=== PATIENT | female | born 1995 | race Hispanic/Latino ===

== ENCOUNTER 2023-09-29 20:18 | Emergency (ER) | payer BC, SELFPAY ==
[2023-09-29 20:21] VITALS: BP 147/85
[2023-09-29 20:40] LABS: % Basophils 0.5 % (0-2); % Eosinophils 1.6 % (0-6); % Immature Granulocytes 0.1 % (0-0.5); % Lymphocytes 31.1 % (20.5-51.1); % Monocytes 8.5 % (1.7-9.3); % Neutrophils 58.2 % (42.2-75.2); Absolute Eosinophils 0.1 10^3/uL (0-0.7); Absolute Lymphocytes 2.5 10^3/uL (1.2-3.4); Absolute Monocytes 0.7 10^3/uL (0.1-0.6); Absolute Neutrophils 4.6 10^3/uL (1.4-6.5); Hematocrit 38.4 % (37.0-47.0); Hemoglobin 13.2 g/dL (12.0-16.0); Mean Corp Hgb Conc. 34.4 g/dL (33.0-37.0); Mean Corpuscular Hgb 33.2 pg (27.0-31.0); Mean Corpuscular Volume 96.5 fL (81.0-99.0); Mean Platelet Volume 10.2 fL (7.4-10.4); Nucleated Red Blood Cells % 0 %; Platelet Count 225 10^3/uL (130-400); Red Blood Cell Count 3.98 10^6/uL (4.20-5.40); Red Cell Dist. Width 11.6 % (11.5-14.5)
[2023-09-29 20:54] LABS: HCG, Serum Qualitative Screen Negative
[2023-09-29 20:55] LABS: Urine Albumin Negative (Neg - Trace); Urine Bilirubin Negative (Negative); Urine Character Clear (Clear); Urine Color Yellow; Urine Glucose Negative (Negative); Urine Ketone Negative (Negative); Urine Leukocyte Negative (Negative); Urine Nitrite Negative (Negative); Urine Occult Blood Negative (Negative); Urine Urobilinogen Negative (Neg - 1+)
[2023-09-29 21:00] LABS: ALT (SGPT) 13 U/L (0-35); AST (SGOT) 25 U/L (14-36); Albumin 4.6 g/dl (3.5-5.0); Alkaline Phosphatase 47 U/L (38-126); Blood Urea Nitrogen 9 mg/dl (7-17); Calcium 9.7 mg/dl (8.4-10.2); Carbon Dioxide 26 mmol/L (22-30); Chloride 103 mmol/L (98-107); Glucose 85 mg/dl (70-99); Sodium 136 mmol/L (135-145); Total Bilirubin 0.5 mg/dl (0.2-1.3); Total Protein 7.6 g/dl (6.3-8.2); eGFR > 60.00
[2023-09-29 21:01] LABS: Lipase 53 U/L (23-300)
--- NOTE | 2023-09-29 21:44 | ED.GENMED ---
History of Present Illness
General
Chief Complaint: Abdominal Pain
Source: patient
Exam Limitations: none
Time Seen by Provider: 09/29/23 21:04
Nursing documentation reviewed up to this point in time: agreed with
History of Present Illness
History of Present Illness:
Patient is a 27-year-old female who presents to the ER complaining right upper quadrant pain. She reports she has had this for the past 2 and half weeks. She did get a full workup in the ER at [place] last Friday including CAT scan and
ultrasound. Pain has been consistent since however today around 6 PM after eating pain intensified. She feels pain in the right upper quadrant radiates to her back she was nauseous. She thought her stool was little darker then normal but still
brown in color. Denies black stools bloody stools.
Patient denies any history of reflux denies any burning sensation in abdomen or chest.
Review of Systems
Review of Systems
Allergies reviewed?: Yes
All Other Systems: ROS reviewed and negative except as documented in HPI and ROS
Constitutional: Reports no symptoms; Denies fever, fatigue or chills
Respiratory: Reports no symptoms
Cardiac: Reports no symptoms
ABD/GI: Reports abdominal pain and nausea; Denies vomiting, diarrhea or constipated
: Reports no symptoms
Musculoskeletal: Reports no symptoms
Skin: Reports no symptoms
Psychiatric: Reports no symptoms
Phy Exam
General Physical Exam
General Presentation: no apparent distress
General Skin: warm and dry
General Habitus: normal
General Mental: alert
General Hydration: appears well hydrated
Gastrointestinal Exam
Gastrointestinal Exam: soft and other (tender RUQ )
Neurological Exam
Neurological Exam: alert and oriented x3
Musculoskeletal Exam
Musculoskeletal Exam: full ROM
Skin Exam
Skin Exam: normal color and warm/dry
Psychiatric Exam
Psychiatric Exam: normal mood/affect
Course
Orders/Labs/Results
Orders:
Orders
09/29/23 20:26
Test Result ONCE
09/29/23 20:33
CBC/With Diff [Complete Blood Count/With Diff] Urgent
CMP [Comprehensive Metabolic Panel] Urgent
HCG, Serum Qualitative Screen Urgent
Lipase Urgent
Urinalysis Reflex To Culture Urgent
Date Specimen was Collected: 09/29/23
Time Specimen was Collected: 20:27
09/29/23 21:45
0.9% Sodium Chloride 1000 ml [Nss] 1,000 ml IV BOLUS
Ketorolac [Toradol] 15 mg IV NOW STA
US Abdomen Complete/Upper Urgent
Comment:
Reason For Exam: ruq pain radiating to back
09/30/23 00:24
Vital Signs- Treatment ONCE
Frequency: Once
Abnormal Lab Results
09/29/23
20:33
RBC 3.98 L 10^6/uL
(4.20-5.40)
MCH 33.2 H pg
(27.0-31.0)
Absolute Monos (auto) 0.7 H 10^3/uL
(0.1-0.6)
09/29/23 20:33
09/29/23 20:33
Vital Signs
Initial and Last Documented VS:
Initial Vital Signs
Temp Pulse Resp BP Pulse Ox
99.7 F 100 24 147/85 98
09/29/23 20:21 09/29/23 20:21 09/29/23 20:21 09/29/23 20:21 09/29/23 20:21
Last Documented Vital Signs
Temp Pulse Resp BP Pulse Ox
99.7 F 100 24 147/85 98
09/29/23 20:21 09/29/23 20:21 09/29/23 20:21 09/29/23 20:21 09/29/23 20:21
Hairspring Inspector consulted with Physician
Hairspring Inspector consulted with physician?: Yes
Name of Physician Consulted: Suyapa
MDM/Problems Addressed
Differential Diagnosis Includes:
Not limited to biliary colic less likely gastritis
MDM/Problems Addressed:
Patient with right upper quadrant pain radiating to back worse after eating. She has had as documented for the past 2 and half weeks. She had a negative workup at [facility] including as she reports normal CAT scan normal ultrasound but pain is
persistent. It intensified today after eating it does sound like biliary colic however workup again here in this ER is unremarkable. She is nontoxic and does feel that she can go home. will d/c w/ outpt f/u by surg. /GI
*Radiology
Radiology exam reviewed: radiology read reviewed
*Pulse Oximetry
Patient hypoxic: no
*Critical Care Note
Total Time (30-74mins, 75-104mins- exclusive of procedures): Not Applicable
ED Attending Note
-
Portions of this chart may have been created with voice recognition software.� Occasional wrong word or��sound alike� substitutions may have occurred due to the inherent limitations of voice recognition software.
Discharge Plan
Departure
Patient Disposition: Home (Routine Discharge)
Date of Disposition: 09/30/23
Time of Disposition: 00:24
Patient with high blood pressure during this ER visit?: Yes
Condition: Fair
Discharge Problem:
Abdominal pain
Instructions: Abdominal Pain, BLOOD PRESSURE
Referrals:
Amor Gil I., [Family Provider] -
Farshad Oliva MD [Active] -
Amna Meade MD [Active] -
Activity Restrictions/Additional Instructions:
As discussed bland diet. Avoid high fatty foods and spicy foods. Call tomorrow to make an appointment tomorrow for reevaluation by surgery as soon as possible. also if you do not hear back from the GI please give them a call. Return if any
worsening of symptoms
Interventions
Interventions:
*Risk Screen - Suicide Last Done: 09/29/23 22:17
*General Assessment Last Done: 09/29/23 22:17
*Neglect/Abuse Screening Last Done: 09/29/23 22:17
TO-Fzvpwv-Jqgniatycf Assessment Last Done: 09/29/23 22:17
Discharge Date and Time
Print Language: JAPANESE
[2023-09-29 23:00] VITALS: BP 132/78
[2023-09-29] MEDS: TORADOL 15 MG IV (23:01)
[2023-09-29] MEDS: NSS 1000 IV (23:01)
[2023-09-30] VITALS: BP 128/74
== END 2023-09-30 00:51 | disposition home or self-care (01) ==
LOC: EMR 20:18
PROVIDERS: Student in an Organized Health Care Education/Training Program; EMERGENCY PHYSICIAN Emergency Medicine; FAMILY PHYSICIAN Internal Medicine
DX: R10.11 Right upper quadrant pain (principal); R11.0 Nausea; R10.31 Right lower quadrant pain; M54.9 Dorsalgia, unspecified; R03.0 Elevated blood-pressure reading, without diagnosis of hypertension; Z88.1 Allergy status to other antibiotic agents; Z88.0 Allergy status to penicillin; Z91.013 Allergy to seafood
CPT/HCPCS: 96361; 76700; 80053; 81003; 83690; 84703; 85025; 96374; 99284

== ENCOUNTER 2023-10-15 16:24 | Inpatient (IN) | payer BC, SELFPAY ==
[2023-10-15 10:59] VITALS: BP 159/90
[2023-10-15 11:45] LABS: Urine Albumin Negative (Neg - Trace); Urine Bilirubin Negative (Negative); Urine Character Clear (Clear); Urine Color Straw; Urine Glucose Negative (Negative); Urine Ketone Negative (Negative); Urine Leukocyte Negative (Negative); Urine Nitrite Negative (Negative); Urine Occult Blood Negative (Negative); Urine Urobilinogen Negative (Neg - 1+)
--- NOTE | 2023-10-15 12:16 | ED.GENMED ---
History of Present Illness
General
Chief Complaint: Abdominal Pain
Source: patient
Exam Limitations: none
Time Seen by Provider: 10/15/23 11:57
History of Present Illness
History of Present Illness:
27-year-old female presents complaining of recurrent epigastric and right upper quadrant abdominal pain that radiates to the back. This is made worse with eating. The pain is sharp in nature with associated nausea but no vomiting or fever. No
urinary symptoms. No chest pain or shortness of breath. Patient has been evaluated 3 times in the recent past for this. She has been dealing with this for a month. She was seen here most recently 2 weeks ago had a negative ultrasound and was
advised to follow-up with GI. She has an appoint with GI on October 29. Her pain is getting worse. Prior to the visit here, she was at [facility] and had CT scan and abdominal ultrasound both of which were negative. She is trying to
adhere to a bland diet. She does note occasional light-colored stools. She denies any black dark or tarry stools.
Phy Exam
Physical Exam
Physical Exam:
General: Well-appearing female no acute respiratory distress
HEENT: Normocephalic atraumatic sclera anicteric
Heart: Regular rate and rhythm no murmurs lungs: Clear to auscultation bilaterally no wheezing
Abdomen soft tender to the right upper quadrant and epigastric region. Normal bowel sounds nondistended no guarding extremities: No cyanosis
Skin: Warm no rash
Course
Orders/Labs/Results
Orders:
Orders
10/15/23 11:09
Urinalysis Reflex To Culture Urgent
Date Specimen was Collected: 10/15/23
Time Specimen was Collected: 11:06
10/15/23 12:10
0.9% Sodium Chloride 1000 ml [Nss] 1,000 ml IV BOLUS
Ketorolac [Toradol] 15 mg IV NOW STA
10/15/23 12:34
Comprehensive Metabolic Panel Urgent
HCG, Serum Qualitative Screen Urgent
Comment: ADD ON
Lipase Urgent
10/15/23 12:35
Complete Blood Count/With Diff Urgent
10/15/23 13:54
HYDROmorphone [Dilaudid] 0.5 mg IV NOW STA
10/15/23 15:24
Add On- LAB Urgent
Tests Added?: serum hcg
Abnormal Lab Results
10/15/23
12:35
MCH 31.8 H pg
(27.0-31.0)
MPV 10.7 H fL
(7.4-10.4)
10/15/23 12:35
10/15/23 12:34
Vital Signs
Initial and Last Documented VS:
Initial Vital Signs
Temp Pulse Resp BP Pulse Ox
98.1 F 89 20 159/90 99
10/15/23 10:59 10/15/23 10:59 10/15/23 10:59 10/15/23 10:59 10/15/23 10:59
Last Documented Vital Signs
Temp Pulse Resp BP Pulse Ox
98.1 F 68 17 135/78 99
10/15/23 10:59 10/15/23 12:40 10/15/23 12:40 10/15/23 12:40 10/15/23 12:40
MDM/Problems Addressed
Differential Diagnosis Includes:
Epigastric and right upper quadrant pain. Negative ultrasounds x [address] scan in the recent past. Will consider biliary issue. Patient is due to see GI in 2 weeks. Also consider gastritis or ulcer however patient denies any dark or tarry
stools. Will check labs again hydrate and give Toradol for symptoms.
*Critical Care Note
Total Time (30-74mins, 75-104mins- exclusive of procedures): Not Applicable
Update Note
Update Note:
Labs reviewed without significant finding. Urinalysis negative. Patient given multiple pain medicine here without any relief. Patient still notes she is in significant pain. This is her third visit here for the same. She has had CT scan and
ultrasound x 2 that are negative. Will defer on imaging but will admit for intractable abdominal pain.
ED Attending Note
-
Portions of this chart may have been created with voice recognition software.� Occasional wrong word or��sound alike� substitutions may have occurred due to the inherent limitations of voice recognition software.
Discharge Plan
Departure
Patient Disposition: Admit
Date of Disposition: 10/15/23
Time of Disposition: 15:35
Admit to: Med/Surg
Presentation/result/management discussed w/ accepting MD/DO: Hospitalist
Discharge Problem:
Abdominal pain
Referrals:
Amor Gil I., DO [Family Provider] -
Interventions
Interventions:
*Risk Screen - Suicide Last Done: 10/15/23 12:35
*General Assessment Last Done: 10/15/23 12:35
*Neglect/Abuse Screening Last Done: 10/15/23 12:35
*ED COVID-19 Vaccine History Last Done: 10/15/23 12:35
EF-Fcqfqc-Ncngrqdzun Assessment Last Done: 10/15/23 12:36
Discharge Date and Time
Print Language: BRUNEIAN
[2023-10-15] MEDS: NSS 1000 IV ×2 (12:33→18:23)
[2023-10-15] MEDS: TORADOL 15 MG IV (12:33)
[2023-10-15 12:37] VITALS: BMI 24.8
[2023-10-15 12:40] VITALS: BP 135/78
[2023-10-15 13:02] LABS: ALT (SGPT) 12 U/L (0-35); AST (SGOT) 21 U/L (14-36); Albumin 4.7 g/dl (3.5-5.0); Alkaline Phosphatase 62 U/L (38-126); Blood Urea Nitrogen 9 mg/dl (7-17); Calcium 9.7 mg/dl (8.4-10.2); Carbon Dioxide 29 mmol/L (22-30); Chloride 102 mmol/L (98-107); Estimated Creatinine Clearance 87 ml/min; Glucose 92 mg/dl (70-99); Lipase 48 U/L (23-300); Potassium 3.9 mmol/L (3.5-5.1); Sodium 141 mmol/L (135-145); Total Bilirubin 0.5 mg/dl (0.2-1.3); Total Protein 7.6 g/dl (6.3-8.2); eGFR > 60.00
[2023-10-15 13:06] LABS: % Basophils 0.9 % (0-2); % Eosinophils 0.7 % (0-6); % Immature Granulocytes 0.2 % (0-0.5); % Lymphocytes 31.6 % (20.5-51.1); % Monocytes 7.2 % (1.7-9.3); % Neutrophils 59.4 % (42.2-75.2); Absolute Basophils 0.1 10^3/uL (0-0.2); Absolute Lymphocytes 1.8 10^3/uL (1.2-3.4); Absolute Monocytes 0.4 10^3/uL (0.1-0.6); Absolute Neutrophils 3.5 10^3/uL (1.4-6.5); Hematocrit 40.8 % (37.0-47.0); Hemoglobin 13.9 g/dL (12.0-16.0); Mean Corp Hgb Conc. 34.1 g/dL (33.0-37.0); Mean Corpuscular Hgb 31.8 pg (27.0-31.0); Mean Corpuscular Volume 93.4 fL (81.0-99.0); Mean Platelet Volume 10.7 fL (7.4-10.4); Nucleated Red Blood Cells % 0 %; Platelet Count 291 10^3/uL (130-400); Red Blood Cell Count 4.37 10^6/uL (4.20-5.40); Red Cell Dist. Width 11.7 % (11.5-14.5); White Blood Cell Count 5.8 10^3/uL (4.8-10.8)
[2023-10-15] MEDS: DILAUDID 0.5 MG IV (14:01)
[2023-10-15 15:37] VITALS: BP 130/79
--- NOTE | 2023-10-15 15:43 | HPS.HSE ---
Family Physician
-
Family Physician: Amor Gil
Chief Complaint
-
Right upper quadrant pain
History of Present Illness
27-year-old female with no chronic medical issues that presented to the ED today with a complaint of abdominal pain. The pain has been recurrent and located in the right upper quadrant with radiation to her back. She states that her pain
is worse with eating, sharp in character and associated with nausea however has not had any episodes of vomiting. Denies fevers, denies dysuria or hematuria, denies chest pain or shortness of breath.
States that she has been evaluated 3 times for the same complaint, has been dealing with the symptoms for about a month now. She was seen here in the ED 2 weeks ago though had negative ultrasound at that time and was advised to follow-up with
gastroenterology. She scheduled an appointment for October 29, though her pain has been getting worse. States she was also seen at [facility] where she had a CT scan and abdominal ultrasound that were negative. Has been trying to adhere
to a bland diet, states she has occasional light-colored stools though denies bloody stools or melena.
Upon arrival to the ED, AFVSS. Initial labs were completely unremarkable. Beta hCG was ordered though results are still pending. Urinalysis was bland and without signs of infection. She was started on IV fluids in the ED and given Toradol and
Dilaudid for pain. Upon my assessment she does state that she had a slight elevation to her liver function test in the outpatient setting that resolved during the time over which she has had symptoms. States that she notices it after food,
especially pastas or fatty foods.
Medical History
Past Medical History
Past Medical History: Reports Other
Additional Past Medical History:
Migraines�on topiramate, recently started within the last week
Past Surgical History: Reports None
Social History
Tobacco: Non-smoker
Alcohol: None
Drug: Marijuana
Family History
Family History: Other (Genetic cardiomyopathy: Mother (states she does not have the genetic finding that her mother did))
Allergies / Home Medications
Allergies reflects when Allergies were last updated in [employer].
Home Medications with original date entered in [employer]
Allergy/Medication List:
Allergies
Allergy/AdvReac Type Severity Reaction Status Date / Time
amoxicillin Allergy Hives Verified 10/15/23 10:58
Penicillins Allergy Hives Verified 10/15/23 10:58
shellfish derived Allergy Hives Verified 10/15/23 10:58
Allergies
Allergy/AdvReac Type Severity Reaction Status Date / Time
amoxicillin Allergy Hives Verified 10/15/23 10:58
Penicillins Allergy Hives Verified 10/15/23 10:58
shellfish derived Allergy Hives Verified 10/15/23 10:58
Home Medications
albuterol sulfate 90 mcg/actuation aerosol inhaler 2 puff inhalation R Q6HPRN PRN sob 10/15/23
diphenhydramine HCl 25 mg tablet (Benadryl Allergy) 25 mg PO HSPRN PRN allergies 10/15/23
fexofenadine 180 mg tablet 180 mg PO DAILYPRN PRN allergies 10/15/23
ondansetron 4 mg disintegrating tablet 4 mg PO Q8HPRN PRN nausea 10/15/23
rizatriptan 10 mg disintegrating tablet 10 mg PO DAILYPRN PRN migraines 10/15/23
sodium chloride 0.65 % nasal spray aerosol (Saline Nasal Mist) 1 spray intranasal BID 10/15/23
topiramate 25 mg tablet 25 mg PO HS 10/15/23
Review of Systems
-
History Source: Patient
A 12 point ROS was completed and negative except as noted: Yes
Constitutional: Reports No Symptoms
EENT: Reports No Symptoms
Respiratory: Reports No Symptoms
Cardiac: Reports No Symptoms
Abdomen/GI: Reports Abdominal Pain and Nausea; Denies Vomiting, Diarrhea, Bloody Stools or Black Stools
: Reports No Symptoms
Musculoskeletal: Reports No Symptoms
Skin: Reports No Symptoms
Neurological: Reports No Symptoms
Endocrine: Reports No Symptoms
Hematologic/Lymphatic: Reports No Symptoms
Psych: Reports No Symptoms
Physical Exam
Vital Signs
Vital Signs
Temp Pulse Resp BP Pulse Ox
98.1 F 76 17 130/79 96
10/15/23 10:59 10/15/23 15:37 10/15/23 15:37 10/15/23 15:37 10/15/23 15:37
Physical Exam
General: Well Nourished, Conversant, Appears in Distress and Pain
HEENT: NormoCephalic, Anicteric, Moist mucous membranes and Atraumatic
Respiratory: Clear and Non Labored Respirations; No Wheezes, Rales or Rhonchi
Cardiac: S1/S2 and Regular Rhythm; No Murmur, Rub, Gallop, Peripheral Edema or JVD
GI: Soft, Non Distended, Normal Bowel Sounds and Tender (RUQ without peritoneal signs, Sykes sign positive)
Musculoskeletal: No Clubbing, No Cyanosis and Other (No gross abnormalities)
Skin: Warm and Dry; No Rash or Jaundice
Neuro: AO x 3, Nonfocal/grossly intact and Cranial Nerves Intact; No Tremors
Laboratory Results
-
10/15/23 12:35
10/15/23 12:34
Laboratory Results
Total Bilirubin 0.5 mg/dl (0.2-1.3) 10/15/23 12:34
AST 21 U/L (14-36) 10/15/23 12:34
ALT 12 U/L (0-35) 10/15/23 12:34
Alkaline Phosphatase 62 U/L (38-126) 10/15/23 12:34
Lipase 48 U/L (23-300) 10/15/23 12:34
Data Reviewed
-
Lab Data: Labs Reviewed by me and Discussed with Patient
Impression/Plan
-
#Recurrent RUQ abdominal pain
#Intractable pain, nausea
-DDx include cholecystitis, less likely Mirizzi syndrome v. choledocholithiasis v. sphincter of Oddi dysfunction
-States in the outpatient setting she has had elevated LFTs, has felt febrile at times
-She has had multiple CT scans and abdominal ultrasound that were normal
-Upon arrival here was afebrile, LFTs WNL, no leukocytosis; still with significant pain
Plan
-Order HIDA scan to assess for cholecystitis
-Start IV Zosyn empirically pending HIDA scan
-Trend vital signs and white cell count
-Analgesia and antiemetics as needed
-Clear liquid diet for now, maintenance IVF
-GI consult
#Migraines
-Recently started on topiramate for migraine history
-Topamax does increase risk for kidney stones
-Timing of initiation, symptomatology not consistent with kidney stone
#Seasonal allergies
-Currently on Benadryl and fexofenadine as needed
DVT prophylaxis: SCDs
Diet: Clear liquid diet
CODE STATUS: Full code
Disposition: Admit to Med/Surg
I will be admitting Deann Can to General Med/surg. He has an increased risk of morbidity and mortality due to likely cholecystitis, potential for gallbladder perforation and sepsis. She will require intensive monitoring of her
CBC/symptoms, empiric treatment with IV antibiotics, HIDA scan to confirm diagnosis of cholecystitis. I have spoken with the ED provider and the client associate in regards to this patient.
--- NOTE | 2023-10-15 15:47 | CON.GI ---
Addendum entered and electronically signed by Danitza Bates Do, MD 10/15/23 17:29:
I saw and examined the patient.
The STATE WILDLIFE OFFICER's note was reviewed and I agree with the note.
Comment: Sarina is a 27yo W with of migraines who presents for the 3rd time this month for RUQ abd pain. Pain is after greasy meal and does radiate to back and R shoulder. She was seen in [place] and told unremarkable CTAP and Abd US. Records
not available to us. In b/w these episodes she continues to have some discomfort at a mild level. She denies associated reflux and heartburn. No dysphagia or wt loss. Vitals stable. Exam TTP RUQ, tearful on exam. Labs reviewed normal LFTs and
lipase
Impression
- Recurrent post prandial RUQ abd pain
Unclear etiology suspect biliary dyskinesia or dyspepsia. Less likely sphincter of oddi dysfunction given normal LFTs
- Diarrhea
- Migraines
- VSD
Recommendations
-CLD
- NPO at [place] for HIDA tomorrow
- If HIDA is not remarkable can consider EGD
- Protonix IV BID
- Check stool studies
- Monitor stool output
Will follow with you
Will follow with you.
Original Note:
Consultation
-
Date/Time Consultation Requested: 10/15/23
Date/Time Consultation Performed: 10/15/23 @ 15:28
Requesting Provider: Dr. Green
Performing Provider: SARAH Martinez; Dr. Danitza Ferrell
Reason for Consultation: abdominal pain
Medical History
Chief Complaint / HPI
Chief Complaint: abdominal pain
History of Present Illness:
The patient is a pleasant 27-year-old female with a past medical history significant for migraines, allergies, ventral septal defect, who presented to the ER with complaints of abdominal pain. The patient reports that about 4 weeks ago she started
having pain in the right upper quadrant area. She notes that the pain was mostly constant but varying in severity. She describes it as a sharp squeezing sensation in the right upper quadrant that would radiate up her chest and into her back. She
notes that she initially was evaluated at [facility] and underwent a CT scan and ultrasound which she reports were unrevealing. She was given some anti-inflammatories and pain medications and sent home. She was advised on a bland diet which
she has followed to some degree but given she is she does eat a lot of spicy and fatty foods. Given her ongoing symptoms she did return to the emergency room here at [facility] as her twin sister works here and it was easier for her to be
evaluated here. She had an ultrasound of the abdomen which was unremarkable. She was advised to follow-up outpatient with GI and surgery given her ongoing symptoms. She has continued with right upper quadrant symptoms with associated nausea. She
reports symptoms much worse after eating and has noticed some change in her bowels including looser stools with mucus. She notes changes in color of her stool including orange, dark brown, and light shirley. She denies any overt fevers but does admit
to chills and some sweats. She has dropped some weight although she is unsure of how much but notes that her clothes are looser. She reports her appetite has also been down due to her symptoms ongoing. She admits that at times it feels like
something is bursting on her right side. She otherwise denies any chronic GI problems such as constipation, diarrhea, reflux, dysphagia, or odynophagia. She sees cardiology regularly given her history of ventricular septal defect. She also has a
family history of ischemic cardiomyopathy. She admits to occasional marijuana use about 1-2 times weekly. She denies any alcohol use recently. She is a non-cigarette smoker. She denies any recent antibiotics, recent travel, or recent steroids.
She had been taking some Advil for the pain but was not using this prior to the onset of her pain.Labs in the ER unremarkable. Lipase normal. HCG negative. Urinalysis was normal. She was treated with IV fluids and Toradol in the ER with some
improvement in her pain. She was treated with additional pain medication with Dilaudid and appears comfortable at this time.
Past Medical History
Past Medical History: Other (Migraines, allergies, ventral septal defect)
Past Surgical History: Other ([place] teeth extraction, pelvic hernia repair, right shoulder laparoscopic surgery)
Social History
Tobacco: Non-Smoker
Alcohol: None
Drug: Marijuana (1-2 times weekly)
Family History
Family History: Reviewed & Not Pertinent
Allergies / Home Medications
Allergy/AdvReac Type Severity Reaction Status Date / Time
amoxicillin Allergy Hives Verified 10/15/23 10:58
Penicillins Allergy Hives Verified 10/15/23 10:58
shellfish derived Allergy Hives Verified 10/15/23 10:58
Review of Systems
-
Constitutional: Reports Weight Loss and Chills
EENT: Reports No Symptoms
Respiratory: Reports No Symptoms
Cardiac: Reports No Symptoms
Abdomen/GI: Reports Abdominal Pain, Nausea, Diarrhea and Other (Abnormally colored stools, loss of appetite)
: Reports Dark Urine
Musculoskeletal: Reports No Symptoms
Skin: Reports No Symptoms
Neurological: Reports No Symptoms
Endocrine: Reports No Symptoms
Hematologic/Lymphatic: Reports No Symptoms
Vital Signs
Temp Pulse Resp BP Pulse Ox
98.1 F 76 17 130/79 96
10/15/23 10:59 10/15/23 15:37 10/15/23 15:37 10/15/23 15:37 10/15/23 15:37
Physical Exam
Exam
General: Well Developed, Well Nourished and No Apparent Distress
HEENT: Normocephalic, Anicteric and Atraumatic
Respiratory: Clear
Cardiac: S1/S2 and Regular Rhythm
Breast: Deferred by me
GI: Soft, Non Distended, Normal Bowel Sounds and Tender (RUQ)
Rectal: Deferred by Provider
Musculoskeletal: No Edema and Other (+TTP right flank area)
Skin: Warm and Dry
Neuro: Awake, Alert and Oriented
Psych: Calm
Results
WBC 5.8 10^3/uL (4.8-10.8) 10/15/23 12:35
Hgb 13.9 g/dL (12.0-16.0) 10/15/23 12:35
Hct 40.8 % (37.0-47.0) 10/15/23 12:35
MCV 93.4 fL (81.0-99.0) 10/15/23 12:35
Plt Count 291 10^3/uL (130-400) 10/15/23 12:35
Absolute Neuts (auto) 3.5 10^3/uL (1.4-6.5) 10/15/23 12:35
Sodium 141 mmol/L (135-145) 10/15/23 12:34
Potassium 3.9 mmol/L (3.5-5.1) 10/15/23 12:34
Chloride 102 mmol/L (98-107) 10/15/23 12:34
Carbon Dioxide 29 mmol/L (22-30) 10/15/23 12:34
BUN 9 mg/dl (7-17) 10/15/23 12:34
Creatinine 0.8 mg/dL (0.6-1.0) 10/15/23 12:34
Calcium 9.7 mg/dl (8.4-10.2) 10/15/23 12:34
Total Bilirubin 0.5 mg/dl (0.2-1.3) 10/15/23 12:34
AST 21 U/L (14-36) 10/15/23 12:34
ALT 12 U/L (0-35) 10/15/23 12:34
Alkaline Phosphatase 62 U/L (38-126) 10/15/23 12:34
Lipase 48 U/L (23-300) 10/15/23 12:34
Diagnostic Image Results:
09/29/23 Us abdomen: normal
Prior GI Procedures:
EGD: none
Colonoscopy: none
Assessment / Plan
-
The patient is a pleasant 27-year-old female with a past medical history significant for migraines, allergies, ventral septal defect, who presented to the ER with complaints of abdominal pain. The patient reports that about 4 weeks ago she started
having pain in the right upper quadrant area, With multiple episodes to the emergency room between here and [facility] with unrevealing workup with CT scan, ultrasound, labs, and urinalysis. She has had ongoing symptoms of right upper
quadrant pain rating to the back and upper chest worsened after fatty/greasy/acidic meals with change of bowel habits with looser stools, and discoloration with orange, dark brown, and light shirley the stools intermittently. She also has noticed
darker urine. Concerning for gallbladder etiology despite negative workup thus far. She had been taking Advil since the onset of her pain but is only using this as needed and not on a regular basis. She denies alcohol use. Labs and urine
unremarkable here today.
Problem list:
-Epigastric/right upper quadrant abdominal pain
-nausea
-looser/fatty stools with discoloration
-occasional marijuana use
Other medical hx:
-VSD
-migraines
-allergies
Recommendations:
-Etiology of current symptoms suspected to be GB in nature although with unrevealing imaging and labs. Other differential include gastroenteritis versus duodenitis versus peptic ulcer disease versus other.
-At this time would advise a HIDA scan for further evaluation of the gallbladder given symptomatology
-If HIDA scan is unrevealing, would consider EGD for further evaluation
-Given acute onset unlikely to be inflammatory bowel disease
-If any recurrent diarrhea would send stool studies
-Will start on once daily PPI to see if this improves her symptoms
-CLD for now, NPO after [place] for HIDA scan
-PRN analgesics/antiemetics
-She should avoid fatty/greasy/acidic/spicy foods
-Further management pending above
Data Reviewed
-
Ultrasound: Report Reviewed by me and Discussed with Physician
Old Records: Reviewed
-
-
Thank you for consultation and allowing me to participate in the patient's care. Please call the special weapons and tactics officer GI physician during the after hours with any questions or concerns.
[2023-10-15 15:58] LABS: HCG, Serum Qualitative Screen Negative
[2023-10-15 17:47] VITALS: BP 127/77; BMI 24.4
[2023-10-15 18:00] VITALS: BMI 24.4
[2023-10-15] MEDS: PROTONIX IV 40 MG IV (18:24)
[2023-10-15] MEDS: NSS (PRESERVATIVE FREE) 10 ML IV (18:24)
[2023-10-15 19:50] LABS: Amphetamines Negative (Negative); Barbiturates Negative (Negative); Benzodiazepines Negative (Negative); Buprenorphine Negative (Negative); Cocaine Negative (Negative); Marijuana Positive (Negative); Methadone Negative (Negative); Methamphetamines Negative (Negative); Opiates Negative (Negative); Phencyclidine Negative (Negative); Tricyclic Antidepressants Negative (Negative)
[2023-10-15] MEDS: OCEAN, SALINE MIST 1 SPRAYS NASAL (20:31)
[2023-10-15] MEDS: TOPAMAX 25 MG PO (21:30)
[2023-10-15 23:57] VITALS: BP 107/53
[2023-10-16 06:00] VITALS: BMI 24.3
[2023-10-16 06:44] LABS: % Basophils 0.5 % (0-2); % Eosinophils 2.4 % (0-6); % Immature Granulocytes 0.4 % (0-0.5); % Lymphocytes 42.5 % (20.5-51.1); % Monocytes 7.9 % (1.7-9.3); % Neutrophils 46.3 % (42.2-75.2); Absolute Eosinophils 0.2 10^3/uL (0-0.7); Absolute Lymphocytes 3.1 10^3/uL (1.2-3.4); Absolute Monocytes 0.6 10^3/uL (0.1-0.6); Absolute Neutrophils 3.4 10^3/uL (1.4-6.5); Hematocrit 38.7 % (37.0-47.0); Hemoglobin 13.1 g/dL (12.0-16.0); Mean Corp Hgb Conc. 33.9 g/dL (33.0-37.0); Mean Corpuscular Hgb 32.9 pg (27.0-31.0); Mean Corpuscular Volume 97.2 fL (81.0-99.0); Nucleated Red Blood Cells % 0 %; Platelet Count 239 10^3/uL (130-400); Red Blood Cell Count 3.98 10^6/uL (4.20-5.40); Red Cell Dist. Width 11.8 % (11.5-14.5); White Blood Cell Count 7.4 10^3/uL (4.8-10.8)
[2023-10-16 07:30] VITALS: BP 109/60
[2023-10-16 07:39] LABS: ALT (SGPT) < 10 U/L (0-35); AST (SGOT) 21 U/L (14-36); Albumin 3.8 g/dl (3.5-5.0); Alkaline Phosphatase 46 U/L (38-126); Blood Urea Nitrogen 8 mg/dl (7-17); Carbon Dioxide 27 mmol/L (22-30); Chloride 105 mmol/L (98-107); Direct Bilirubin 0.1 mg/dl (0.0-0.4); Estimated Creatinine Clearance 77 ml/min; Glucose 80 mg/dl (70-99); Sodium 140 mmol/L (135-145); Total Bilirubin 0.8 mg/dl (0.2-1.3); Total Protein 6.4 g/dl (6.3-8.2); eGFR > 60.00
[2023-10-16] MEDS: NSS (PRESERVATIVE FREE) 10 ML IV (10:51)
[2023-10-16] MEDS: PROTONIX IV 40 MG IV (10:51)
[2023-10-16] MEDS: OCEAN, SALINE MIST 50 SPRAYS NASAL (10:52)
[2023-10-16] MEDS: NSS 1000 IV (12:22)
[2023-10-16] MEDS: TYLENOL 650 MG PO ×2 (12:23→20:31)
--- NOTE | 2023-10-16 13:20 | W.PN.HOSP.TC ---
Today's Communication/Plan
-
Continue IV antibiotics
Follow-up HIDA scan
Monitor temperature curve and WBC count
Advance diet
Assessment / Plan
Assessment / Plan
#Recurrent RUQ abdominal pain
#Intractable pain, nausea
-DDx include cholecystitis, less likely Mirizzi syndrome v. choledocholithiasis v. sphincter of Oddi dysfunction
-States in the outpatient setting she has had elevated LFTs, has felt febrile at times
-She has had multiple CT scans and abdominal ultrasound that were normal
-Upon arrival here was afebrile, LFTs WNL, no leukocytosis; still with significant pain
-HIDA scan was performed this morning with final results pending
-GI following, recs appreciated
Plan
-Follow-up HIDA scan results
-Continue with IV Zosyn empirically for now
-Trend temperature and WBC
-Analgesics and antiemetics as needed
-Advance diet as tolerated
#Migraines
-Recently started on topiramate for migraine history
-Topamax does increase risk for kidney stones
-Timing of initiation, symptomatology not consistent with kidney stone
#Seasonal allergies
-Currently on Benadryl and fexofenadine as needed
DVT prophylaxis: SCDs
Diet: Clear liquid diet
CODE STATUS: Full code
Anticipated Discharge: 24 - 48 hours
Subjective/Interval History
-
Date of Service: October 16, 2023
Seen and examined at bedside. No acute events reported overnight.
She states she feels about the same as yesterday, with 6/10 abdominal pain is fairly consistent. Remains hemodynamically stable, afebrile, on room air.
She denies chest pain, fevers or chills, shortness of breath, nausea, vomiting, diarrhea, urinary issues, abnormal bleeding or bruising, paresthesias or weakness.
Objective Data
-
Labs:
Laboratory Results
10/16/23
04:49
WBC 7.4
Hgb 13.1
Hct 38.7
Plt Count 239
Sodium 140
Potassium 4.0
Chloride 105
Carbon Dioxide 27
BUN 8
Creatinine 0.9
Glucose 80
Calcium 9.0
Total Bilirubin 0.8
AST 21
ALT < 10
Alkaline Phosphatase 46
Vital Signs:
Vital Signs
Temp Pulse Resp BP Pulse Ox
98.3 F 57 16 109/60 100
10/16/23 07:30 10/16/23 07:30 10/16/23 07:30 10/16/23 07:30 10/16/23 07:30
I&O
10/15/23 10/16/23 10/17/23
06:59 06:59 06:59
Intake Total 780 / 780
Balance 780 / 780
Review of Systems
-
History Source: Patient
All other systems: Reviewed and negative
Physical Exam
-
General: Well Nourished, No Apparent Distress and Comfortable
HEENT: Normocephalic, Atraumatic, Moist Mucous Membranes and Anicteric
Respiratory: Clear to Auscultation and Non Labored Respirations; Negative Wheezes, Rales or Rhonchi
Cardiac: Regular Rhythm and S1/S2; Negative Murmur, Rub or Gallop
GI: Soft, Nondistended, Normal Bowel Sounds, Tender (RUQ, no peritoneal signs) and No Hepatosplenomegaly
Musculoskeletal: No Clubbing, No Cyanosis and No Edema
Skin: Warm, Dry and Normal Turgor; Negative Rash or Jaundice
Neuro: AO x 3, Nonfocal/Grossly Intact and Central Nerve's Intact; Negative Tremors
Hematologic / Lymphatic: No Lymphadenopathy
Data Reviewed
-
Medical Tests (Nuc Med, Echo etc): Discussed with Patient
Labs: Labs Reviewed by me and Discussed with Patient
[2023-10-16] MEDS: MAXALT MLT (ORALLY DISINTEGRATING) 10 MG PO (15:24)
[2023-10-16 15:25] VITALS: BP 138/79
--- NOTE | 2023-10-16 16:16 | W.PN.GI.CBS2 ---
Today's Communication / Plan
-
EGD tomorrow
Assessment / Plan
-
Sarina is a 27yo W with of migraines who presents for the 3rd time this month for RUQ abd pain. Pain is after greasy meal and does radiate to back and R shoulder. She was seen in [place] and told unremarkable CTAP and Abd US. Records not
available to us. In b/w these episodes she continues to have some discomfort at a mild level. She denies associated reflux and heartburn. No dysphagia or wt loss. Labs reviewed normal LFTs and lipase
Impression
- Recurrent post prandial RUQ abd pain
Unclear etiology suspect biliary dyskinesia or dyspepsia. Less likely sphincter of oddi dysfunction given normal LFTs
- Diarrhea
- Migraines
- VSD
Recommendations
- HIDA done 10/15 not remarkable.
-CLD
- NPO at [place] for EGD tomorrow
- Protonix IV BID
- Check stool studies
- Monitor stool output
Will follow with you
Subjective
Subjective
Date of Service: October 16, 2023
Continues to report RUQ abd pain. Wants diet advanced. Had HIDA scan today
Objective
Data Reviewed
Laboratory Data:
Laboratory Results
10/16/23 04:49
10/16/23 04:49
Laboratory Results
Total Bilirubin 0.8 mg/dl (0.2-1.3) 10/16/23 04:49
AST 21 U/L (14-36) 10/16/23 04:49
ALT < 10 U/L (0-35) 10/16/23 04:49
Alkaline Phosphatase 46 U/L (38-126) 10/16/23 04:49
Lipase 48 U/L (23-300) 10/15/23 12:34
Vital Signs and I&O:
Vital Signs
Temp Pulse Resp BP Pulse Ox
98.6 F 61 16 138/79 99
10/16/23 15:25 10/16/23 15:25 10/16/23 15:25 10/16/23 15:25 10/16/23 15:25
I&O
10/15/23 10/16/23 10/17/23
06:59 06:59 06:59
Intake Total 780 / 780
Balance 780 / 780
Physical Exam
Physical Exam
GEN: No acute distress, conversant, pleasant
HEENT: anicteric, extraocular movements intact, clear oropharynx without exudates
GI: soft, non-distended, RUQ mildly tender to palpation, normal active bowel sounds, no hepatosplenomegaly
EXT: warm, well perfused, no edema bilaterally
NEURO: AAOx3, non-focal
--- NOTE | 2023-10-16 17:26 | PTCARENOTE ---
Patient reporting feeling nausea while eating clear liquid tray. Refused zofran. Plan of care on going.
--- NOTE | 2023-10-16 18:23 | CM ---
met with patient at bedside.patient lives with her parents in home with 4 nate,her bed and bath is on second level,she amb I and is I with her ADL.
her pcp is dr supa jane and she uses [facility] in [place].she has never had a vn or been to ip rehab.
patient is adm with rul abd pain.she has had a us abd,ct abd,hida scan and will have an egd tomorrow.plan:dc home with no needs when stable.
[2023-10-16] MEDS: OCEAN, SALINE MIST 1 SPRAYS NASAL (19:26)
[2023-10-16] MEDS: TOPAMAX 25 MG PO (21:38)
[2023-10-16 23:52] VITALS: BP 110/66
[2023-10-17 06:29] LABS: % Eosinophils 2.1 % (0-6); % Immature Granulocytes 0.3 % (0-0.5); % Lymphocytes 44.7 % (20.5-51.1); % Monocytes 8.8 % (1.7-9.3); % Neutrophils 43.1 % (42.2-75.2); Absolute Basophils 0.1 10^3/uL (0-0.2); Absolute Eosinophils 0.1 10^3/uL (0-0.7); Absolute Monocytes 0.6 10^3/uL (0.1-0.6); Absolute Neutrophils 2.9 10^3/uL (1.4-6.5); Hematocrit 37.3 % (37.0-47.0); Hemoglobin 12.8 g/dL (12.0-16.0); Mean Corp Hgb Conc. 34.3 g/dL (33.0-37.0); Mean Corpuscular Hgb 32.7 pg (27.0-31.0); Mean Corpuscular Volume 95.4 fL (81.0-99.0); Mean Platelet Volume 11.4 fL (7.4-10.4); Nucleated Red Blood Cells % 0 %; Platelet Count 239 10^3/uL (130-400); Red Blood Cell Count 3.91 10^6/uL (4.20-5.40); Red Cell Dist. Width 11.6 % (11.5-14.5); White Blood Cell Count 6.8 10^3/uL (4.8-10.8)
[2023-10-17 06:57] LABS: ALT (SGPT) < 10 U/L (0-35); AST (SGOT) 21 U/L (14-36); Albumin 3.8 g/dl (3.5-5.0); Alkaline Phosphatase 46 U/L (38-126); Blood Urea Nitrogen 8 mg/dl (7-17); Calcium 9.2 mg/dl (8.4-10.2); Carbon Dioxide 23 mmol/L (22-30); Chloride 106 mmol/L (98-107); Estimated Creatinine Clearance 77 ml/min; Glucose 74 mg/dl (70-99); Potassium 3.9 mmol/L (3.5-5.1); Sodium 140 mmol/L (135-145); Total Bilirubin 0.8 mg/dl (0.2-1.3); Total Protein 6.6 g/dl (6.3-8.2); eGFR > 60.00
[2023-10-17 07:28] VITALS: BP 106/54
[2023-10-17] MEDS: NSS (PRESERVATIVE FREE) 10 ML IV (08:31)
[2023-10-17] MEDS: PROTONIX IV 40 MG IV (08:32)
[2023-10-17] MEDS: OCEAN, SALINE MIST NASAL (08:36)
[2023-10-17] MEDS: TYLENOL 650 MG PO ×2 (08:47→12:52)
[2023-10-17 10:01] VITALS: BP 127/69
[2023-10-17 10:15] VITALS: BP 126/89
[2023-10-17 10:30] VITALS: BP 114/65
--- NOTE | 2023-10-17 10:32 | PTCARENOTE ---
pt i GI lab, report called to 20. private room d/t enhanced precautions
--- NOTE | 2023-10-17 13:47 | W.PN.HOSP.TC ---
Today's Communication/Plan
-
Monitor clinically
Possible discharge later v. tomorrow morning
Outpatient GI follow-up
Assessment / Plan
Assessment / Plan
#Recurrent RUQ abdominal pain -- Question functional bowel disorder such as IBS
-States in the outpatient setting she has had elevated LFTs, has felt febrile at times
-She has had multiple CT scans and abdominal ultrasound that were normal
-Upon arrival here was afebrile, LFTs WNL, no leukocytosis; still with significant pain
-HIDA scan was unremarkable, EGD today without abnormal findings
-GI has since signed off, patient has outpatient GI appointment for October 29
-Continue to monitor clinically, as needed analgesics and antiemetics while here
-Advised patient to keep a food and symptom diary, record records for GI outpatient visit
#Migraines
-Recently started on topiramate for migraine history
-Topamax does increase risk for kidney stones
-Timing of initiation, symptomatology not consistent with kidney stone
#Seasonal allergies
-Currently on Benadryl and fexofenadine as needed
DVT prophylaxis: SCDs
Diet: Regular diet
CODE STATUS: Full code
Anticipated Discharge: Within 24 hours
Subjective/Interval History
-
Date of Service: October 17, 2023
Seen and examined at the bedside. No acute events reported overnight. Just returned from EGD which was negative for any findings, GI is signed off
She remains hemodynamically stable, afebrile, on room air.
She mentions this morning that she spoke with both of her parents and gather more family history. Father's side of family has history of colon and stomach cancer, mother side with history of cervical cancer, breast cancer on both sides of her
family. Mentions that it would be abnormal cancer to present similarly to the symptoms she has. She is unsure of the age as in which her family members were diagnosed with these cancers. She should have a routine cancer screening performed in the
outpatient setting. Consider early colonoscopy based off of age in which family members were diagnosed.
She denies chest pain, shortness of breath, fevers or chills, nausea, vomiting, diarrhea, urinary issues, abnormal bleeding or bruising, paresthesias or weakness. She still has abdominal pain which is same intensity and character as it has been,
and denies any changes to her pain
Objective Data
-
Labs:
Laboratory Results
10/17/23
04:45
WBC 6.8
Hgb 12.8
Hct 37.3
Plt Count 239
Sodium 140
Potassium 3.9
Chloride 106
Carbon Dioxide 23
BUN 8
Creatinine 0.9
Glucose 74
Calcium 9.2
Total Bilirubin 0.8
AST 21
ALT < 10
Alkaline Phosphatase 46
Vital Signs:
Vital Signs
Temp Pulse Resp BP Pulse Ox
97.8 F 54 13 114/65 97
10/17/23 10:00 10/17/23 10:30 10/17/23 10:30 10/17/23 10:30 10/17/23 10:30
I&O
10/16/23 10/17/23 10/18/23
06:59 06:59 06:59
Intake Total 780 / 780
Balance 780 / 780
Review of Systems
-
History Source: Patient
All other systems: Reviewed and negative
Physical Exam
-
General: Well Nourished, No Apparent Distress and Comfortable
HEENT: Normocephalic, Atraumatic, Moist Mucous Membranes and Anicteric
Respiratory: Clear to Auscultation and Non Labored Respirations; Negative Wheezes, Rales or Rhonchi
Cardiac: Regular Rhythm and S1/S2; Negative Murmur, Rub, JVD or Gallop
GI: Soft, Nontender, Nondistended and Normal Bowel Sounds
Musculoskeletal: No Clubbing, No Cyanosis and No Edema
Skin: Warm and Dry; Negative Rash or Jaundice
Neuro: AO x 3, Nonfocal/Grossly Intact, Central Nerve's Intact and Other (Facial twitch present)
Data Reviewed
-
Medical Tests (Nuc Med, Echo etc): Report Reviewed by me, Discussed with Physician and Discussed with Patient
Labs: Labs Reviewed by me and Discussed with Patient
--- NOTE | 2023-10-17 14:17 | W.DCSUMMARY ---
Discharge Summary
Discharge Data
Date of Admission: 10/15/23
Date of Discharge: 10/17/23
-
Pending Results: Yes
Additional Pending Results:
Gastric biopsies from EGD
Hospital Course
27-year-old female with migraines and seasonal allergies, family history of cancer (stomach, colon, cervical) that presented to the ED with complaint of right upper quadrant abdominal pain over 1 months time. States she has been previously seen in
urgent care and [facility], had CT scans and abdominal ultrasounds that were all negative. Upon initial presentation her history was consistent with pain of gallbladder etiology. Was started on empiric antibiotics with HIDA scan ordered
with findings negative for acute cholecystitis. Antibiotics discontinued. Stool cultures were ordered initially though she did not have any diarrhea subsequently, test was ultimately canceled.
Gastroenterology had suspicion for dyspepsia as well and performed EGD on 10/17/2023 that was negative for any findings. Biopsies obtained with results pending. Symptoms remained stable over the course of her hospitalization. LFTs were stable, no
signs of bleeding or new leukocytosis.
Ultimately there was no answer to the etiology of her pain. Suspicion high for functional bowel disorder.
She has office visit scheduled with gastroenterology on 10/30/2023. I advised her to keep that appointment and begin recording her symptoms, and associated foods or activities in a diary. I advised her to take that diary to her gastroenterology
appointment. Gastroenterology can consider further workup with colonoscopy, EUS, as deemed necessary by them. Advised her to follow-up with her PCP within 7 days of discharge as well.
Discharge Plan
-
Patient Disposition: Home (Routine Discharge)
Discharge Diagnosis/Procedures: Right upper quadrant abdominal pain -- source unspecified
Condition: Good
Diet: No restrictions
Activity: As tolerated
Driving Restrictions: No driving for 24 hours
Bathing Restrictions: None
Blood Work: None
Others Tests: Possible colonoscopy with building certifier
Activity Restrictions/Additional Instructions:
Schedule follow-up appointment with primary care doctor within 7 to 10 days of discharge. Keep your office visit with gastroenterology on October 29 and make sure you attend that appointment.
You should keep a diary of your abdominal symptoms, document the times of which they occur, whether they occur after eating or not (document which foods cause it), and any other symptoms that you may be experiencing besides the pain. Take this
diary with you on October 29 when you see gastroenterology.
Instructions: Abdominal Pain, Adult ED, Abdominal pain in adults - Discharge instructions
Referrals:
Amor Gil I., DO [Family Provider] -
Prescriptions:
Continued
topiramate 25 mg Tablet
25 mg PO HS
fexofenadine 180 mg Tablet
180 mg PO DAILYPRN PRN (Reason: allergies)
rizatriptan 10 mg Tablet,Disintegrating
10 mg PO DAILYPRN PRN (Reason: migraines)
diphenhydramine HCl [Benadryl Allergy] 25 mg Tablet
25 mg PO HSPRN PRN (Reason: allergies)
albuterol sulfate 90 mcg/actuation Hfa Aerosol Inhaler
2 puff INHALATION R Q6HPRN PRN (Reason: sob)
ondansetron 4 mg Tablet,Disintegrating
4 mg PO Q8HPRN PRN (Reason: nausea)
Saline Nasal Mist 0.65 % Aerosol,[place]
1 spray INTRANASAL BID
Discharge Orders:
Discharge Patient (As Directed); Ordered 10/17/23
Ordered By: Donald Muñoz
Discharge Date and Time
Print Language: DIVEHI
--- NOTE | 2023-10-17 15:21 | CM ---
MD entered order for discharge.
Spoke with pt she said she was ready for discharge.
she said her mom Pippa will drive her home.
PLAN Home no needs
== END 2023-10-17 15:23 | disposition home or self-care (01) | DRG 392 ==
LOC: 3 WEST ACU 16:24
PROVIDERS: Internal Medicine Gastroenterology; Physician Assistant; ADMITTING PHYSICIAN Internal Medicine; CONSULT PHYSICIAN Internal Medicine Gastroenterology; EMERGENCY PHYSICIAN Emergency Medicine; FAMILY PHYSICIAN Internal Medicine
PROC: 0DB68ZX Excision of Stomach, Via Natural or Artificial Opening Endoscopic, Diagnostic (ICD-10-PCS; 2023-10-17)
DX: R10.11 Right upper quadrant pain (principal)
CPT/HCPCS: 88305; 78226; 80053; 80306; 81003; 82248; 83690; 84703; 85025; 88342; 96361; 96374; 96375; 99284; A9537

== ENCOUNTER → 2023-11-05 06:18 | Day surgery (SDC) | payer BC, SELFPAY | LOC: GI 06:18 | PROVIDERS: ATTENDING PHYSICIAN Internal Medicine Gastroenterology | DX: R10.11 Right upper quadrant pain (principal); R19.4 Change in bowel habit; K64.8 Other hemorrhoids | CPT/HCPCS: 45378 ==

== ENCOUNTER → 2023-11-17 07:59 | Outpatient (REF) | payer BC, SELFPAY | LOC: RAD 07:59 | PROVIDERS: ATTENDING PHYSICIAN Internal Medicine Gastroenterology; FAMILY PHYSICIAN Internal Medicine | DX: R10.11 Right upper quadrant pain (principal) | CPT/HCPCS: 78227; A9537; J2805 ==

== ENCOUNTER 2024-01-02 06:19 | Day surgery (SDC) | payer BC, SELFPAY ==
[2023-12-31 09:01] LABS: Hematocrit 40.3 % (37.0-47.0); Mean Corp Hgb Conc. 32.3 g/dL (33.0-37.0); Mean Corpuscular Hgb 31.9 pg (27.0-31.0); Mean Platelet Volume 10.4 fL (7.4-10.4); Platelet Count 267 10^3/uL (130-400); Red Blood Cell Count 4.07 10^6/uL (4.20-5.40); Red Cell Dist. Width 12.6 % (11.5-14.5)
[2023-12-31 09:25] LABS: ALT (SGPT) 14 U/L (0-35); AST (SGOT) 22 U/L (14-36); Albumin 4.1 g/dl (3.5-5.0); Alkaline Phosphatase 53 U/L (38-126); Blood Urea Nitrogen 18 mg/dl (7-17); Calcium 9.3 mg/dl (8.4-10.2); Carbon Dioxide 28 mmol/L (22-30); Chloride 105 mmol/L (98-107); Glucose 87 mg/dl (70-99); Potassium 4.5 mmol/L (3.5-5.1); Sodium 141 mmol/L (135-145); Total Bilirubin < 0.1 mg/dl (0.2-1.3); Total Protein 6.9 g/dl (6.3-8.2); eGFR > 60.00
[2023-12-31 10:50] VITALS: BMI 25.1
[2024-01-02] VITALS (9 sets, daily range): BP systolic 110–138; BP diastolic 68–82; BMI 25.1
[2024-01-02] MEDS: TYLENOL 1000 MG PO (08:11)
[2024-01-02] MEDS: ULTRAM 50 MG PO (11:10)
== END 2024-01-02 12:05 | disposition home or self-care (01) ==
LOC: SDS 06:19
PROVIDERS: ATTENDING PHYSICIAN Surgery; FAMILY PHYSICIAN Internal Medicine
DX: K82.8 Other specified diseases of gallbladder (principal)
CPT/HCPCS: 47563; 88304; 36415; 74300; 76000; 80053; 85027; A4300

== ENCOUNTER → 2024-10-11 16:16 | Outpatient (REF) | payer BC, SELFPAY ==
[2024-10-11 17:16] LABS: Hematocrit 41.1 % (37.0-47.0); Hemoglobin 13.3 g/dL (12.0-16.0); Mean Corp Hgb Conc. 32.4 g/dL (33.0-37.0); Mean Corpuscular Volume 98.1 fL (81.0-99.0); Nucleated Red Blood Cells % 0 %; Platelet Count 291 10^3/uL (130-400); Red Cell Dist. Width 12.4 % (11.5-14.5)
[2024-10-11 17:40] LABS: ALT (SGPT) 15 U/L (0-35); AST (SGOT) 22 U/L (14-36); Albumin 4.7 g/dl (3.5-5.0); Alkaline Phosphatase 57 U/L (38-126); Blood Urea Nitrogen 10 mg/dl (7-17); Calcium 9.6 mg/dl (8.4-10.2); Carbon Dioxide 31 mmol/L (22-30); Chloride 103 mmol/L (98-107); Glucose 85 mg/dl (70-99); Potassium 4.4 mmol/L (3.5-5.1); Sodium 138 mmol/L (135-145); Total Protein 7.7 g/dl (6.3-8.2); eGFR > 60.00
== END ==
LOC: REG 16:16
PROVIDERS: ATTENDING PHYSICIAN Internal Medicine Gastroenterology; FAMILY PHYSICIAN Internal Medicine
DX: R10.11 Right upper quadrant pain (principal)
CPT/HCPCS: 36415; 80053; 82248; 85025

== ENCOUNTER → 2024-10-19 07:45 | Outpatient (REF) | payer BC, SELFPAY | LOC: HWRAD 07:45 | PROVIDERS: ATTENDING PHYSICIAN Internal Medicine Gastroenterology; FAMILY PHYSICIAN Internal Medicine | DX: R10.11 Right upper quadrant pain (principal) | CPT/HCPCS: 76700 ==